=== PATIENT | male | born 1960 | race Caucasian/White ===

== ENCOUNTER → 2016-07-03 | Outpatient (CLI) | payer OTHER ==
[2016-07-03 12:20] LABS: EKG EKG PERFORMED
[2016-07-03 13:13] LABS: Basophils # (A) 0.1 k/uL (0-0.2); Basophils % (A) 1 %; CH 33.8; CHCM 35.2; Eosinophils # (A) 0.2 k/uL (0-0.7); Eosinophils % (A) 3 %; HCT 51.2 % (39.0-53.0); HDW 2.72; HGB 17.1 gm/dL (13.0-17.5); Luc # (Auto) 0.12; Luc % (Auto) 2; Lymphocytes # (A) 2.2 k/uL (1.0-4.8); Lymphocytes % (A) 32 %; MCH 32.2 pg (25.0-35.0); MCHC 33.4 g/dL (31.0-37.0); MCV 96.4 fL (80.0-100.0); Mean Platelet Volume 7.8; Monocytes # (A) 0.4 k/uL (0-1.0); Monocytes % (A) 6 %; Neutrophils # (A) 3.8 k/uL (1.3-7.7); Neutrophils % (A) 56 %; RBC 5.31 m/uL (4.30-5.90); WBC 6.8 k/uL (3.8-10.6); WBC (Perox) 6.78
[2016-07-03 13:29] LABS: ALT 39 U/L (21-72); AST 22 U/L (17-59); Alkaline Phosphatase 59 U/L (38-126); Anion Gap 13 mmol/L; Blood Urea Nitrogen 21 mg/dL (9-20); Carbon Dioxide 27 mmol/L (22-30); Chloride 107 mmol/L (98-107); Glucose 95 mg/dL (74-99); Non-African American GFR(MDRD) >60 (>60 ml/min/1.73 sqM); Potassium 4.7 mmol/L (3.5-5.1); Sodium 147 mmol/L (137-145); Total Bilirubin 0.5 mg/dL (0.2-1.3); Total Protein 8.2 g/dL (6.3-8.2)
[2016-07-03 13:32] LABS: Appearance,Urine Clear (Clear); Bilirubin,Urine Negative (Negative); Glucose,Urine (UA) Negative (Negative); Ketones,Urine Negative (Negative); Leukocyte Esterase,Urine Negative (Negative); Nitrite,Urine Negative (Negative); Protein,Urine Negative (Negative); Specific Gravity,Urine 1.019 (1.001-1.035); UA Billing (MACRO vs. MICRO) CHEM; Urobilinogen,Urine <2.0 mg/dL (<2.0)
[2016-07-03 13:34] LABS: Partial Thromboplastin Time 22.6 sec (22.0-30.0); Prothrombin Time 10.3 sec (9.0-12.0)
== END | disposition home or self-care (01) ==
LOC: LABPAT 12:10
PROVIDERS: ATTEND Orthopaedic Surgery
DX: Z01.810 Encounter for preprocedural cardiovascular examination (principal); Z01.812 Encounter for preprocedural laboratory examination
CPT/HCPCS: 80053; 81003; 85025; 85610; 85730; 87070; 93005

== ENCOUNTER 2016-07-17 06:00 | Inpatient (IN) | payer OTHER ==
[~2016-07-17 06:00] MED LIST: ACETAMINOPHEN TAB 500 MG TAB PO ONE; DEXAMETHASONE SOD PHOSPHATE 10 MG/ML 1 ML VIAL IV ONE; HYDROmorphone 1 MG/ML 1 ML SYRINGE IVP PRN; MELOXICAM 7.5 MG TAB PO ONE; ONDANSETRON 4 MG/2 ML VIAL IVP ONE; TRANEXAMIC ACID 1,000 MG in SODIUM CHLORIDE 0.9% 100 ML IVPB ONE; ceFAZolin 2 GM in SODIUM CHLORIDE 0.9% 100 ML IVPB ONE
[2016-07-17] MEDS: LACTATED RINGERS 1,000 ML IV SCH ×2 (06:51→21:48)
[2016-07-17] MEDS ORDERED: LIDOCAINE 1% 20 ML VIAL (10MG/ML) FOR IV START INTRADERMA ONE (06:51)
[2016-07-17] MEDS: MIDAZOLAM 2 MG/2 ML VIAL IV PRN ×2 (07:17→07:22)
[2016-07-17] MEDS ORDERED: hydrALAZINE HCL 20 MG/ML 1 ML VIAL ONE (07:50)
[2016-07-17] MEDS ORDERED: ESMOLOL 100 MG/10 ML VIAL ONE (07:50)
[2016-07-17] MEDS ORDERED: SODIUM CHLORIDE 0.9% 100 ML BAG ONE (07:50)
[2016-07-17] MEDS ORDERED: TRANEXAMIC ACID 1,000 MG/10 ML VIAL ONE (07:50)
[2016-07-17] MEDS ORDERED: MIDAZOLAM 2 MG/2 ML VIAL ONE (07:50)
[2016-07-17] MEDS ORDERED: PROPOFOL 10 MG/ML 20 ML VIAL IV ONE (07:50)
[2016-07-17] MEDS ORDERED: ceFAZolin 3,000 MG in SODIUM CHLORIDE 0.9% IRRIGATIO 3,000 ML IRRIGATION ONE (07:50)
[2016-07-17] MEDS: ROPIVACAINE 246.25 MG, EPINEPHrine 0.5 MG, KETOROLAC 30 MG, cloNIDine HCL/PF 80 MCG, WA... MISCELLANE ONE ×10 (08:16→09:11)
[2016-07-17] MEDS ORDERED: ROPIVACAINE 1,100 MG, SODIUM CHLORIDE 0.9% 330 ML MISCELLANE PRN ×2 (09:11)
--- NOTE | 2016-07-17 09:13 | P.ONQ ---
Anesthesiology Proc Note - PNB - Peripheral Nerve Block Performed Right Adductor Canal Indication: Acute Post-Operative Pain, Requested by physician (Marbin Ashton) Sedation Type: Sedate with meaningful contact maintained Preparation: Sterile Dressing Position: Supine Catheter: Indwelling Needle Types: On-Q Needle Size: 100mm (4") Needle Gauge: 20 Technique: Ultrasound Injectate: 0.5% Ropivacaine (see comment for volume) (20cc) Blood Aspirated: No Pain Paresthesia on Injection Noted: No Resistance on Injection: Normal Events: Uneventful and Well Tolerated
--- NOTE | 2016-07-17 09:40 | P.OP ---
Date of Procedure: 07/17/16 Preoperative Diagnosis: Severe osteoarthritis right knee Postoperative Diagnosis: Severe osteoarthritis right knee Procedure(s) Performed: Right total knee arthroplasty Implants: Blackwell [employer] Nephew Oxinium femoral component size 7, right Blackwell [employer]hew Anjelica II right nonporous tibial baseplate size 8 [employer]well [employer]hew size 9mm Legion XLPE dished articular insert, size 7-8 [employer] Anjelica II resurfacing patellar component, 35 mm All components were cemented using Timmy bone cement.. The articulation is ceramic on polyethylene. Anesthesia: spinal Surgeon: Marbin Ashton Telegraphic Typewriter Operator Chief #1: Katie Parrish Estimated Blood Loss (ml): 50 Pathology: other (Bone and cartilage) Condition: stable Disposition: PACU Indications for Procedure: After failure of conservative treatment we discussed the surgical and nonsurgical treatment options at length. Patient wishes to proceed with a total knee arthroplasty. Complications specific to this procedure were discussed at length, including but not limited to infection, bleeding, stiffness , and nerve injury. Patient is aware of all these complications and informed consent was obtained Operative Findings: Preoperative findings are consistent with severe osteoarthritis of the right knee Description of Procedure: Patient was seen in the preoperative area consent was reviewed and operative site was marked with a skin marker. An adductor canal pain catheter was placed by anesthesia in the preoperative area. Patient was then brought to the operating room and given preoperative antibiotics intravenously. A spinal anesthetic was administered by the anesthesia department. A tourniquet was placed on the upper thigh and the lower extremity was prepped and draped in usual sterile fashion. A gram of transexamic acid was given. A universal timeout was then performed which confirmed the patient's name, surgical site, ALLERGIES, and consent. The lower extremity was then exsanguinated and tourniquet was inflated to 250 mmHg. A standard and anterior midline approach to the knee was performed. The skin and subcutaneous tissue was dissected down to the patellar tendon. A medial parapatellar arthrotomy was then performed. The knee was then extended, the patellar was everted, and the knee was again flexed. Anterior horns of both menisci were excised, and a release was performed to the posterior medial aspect of the knee. On gross visual inspection, there was complete loss of articular cartilage in the medial and patellofemoral joint spaces. There was also significant cartilage damage in the lateral compartment. There were multiple periarticular osteophytes which were then removed with a Ronguer. The femoral canal was then opened with the appropriate drill, and the intramedullary femoral cutting guide was then placed and set for 4 of valgus. The distal femoral cutting block was then pinned in place, and the distal femur was then cut. The cutting block was then removed and the cut was checked for flatness. Next, the sizing guide was then placed and set for 3 external rotation based off of the epicondylar axis and Whitesides line. After the femur was sized, the appropriate 4-in-1 cutting block was then pinned in place. The anterior condyles were cut without notching. The posterior and chamfer cuts were performed while protecting the collateral ligaments. The cutting block was then removed, and the femoral canal was plugged with autologous bone. Attention was then directed to the tibia. The remaining ACL was removed with a Ronguer, and the tibia was then gently subluxed forward with a large bent knee retractor. Any remaining menisci was excised. The posterior lateral corner was cauterized in order to cauterize the lateral geniculate artery. The extra medullary tibial cutting guide was then placed, set for the appropriate rotation , slope, and depth of resection. The proximal tibia cutting guide was then pinned in place. Proximal tibia was then cut and sized. Next trials were then placed with the appropriate-sized insert. The knee was able to fully extend and flex to 130 and was stable throughout all range of motion. The knee was then extended, patella everted. Patella was then measured, and then using an osteotomy guide, the patella was cut at the appropriate level. The patella was then measured and drilled and the patella trial was then placed. The knee was then taken through range of motion with the patella trial and the patella tracked normally. The knee was then extended patella trial was then removed and the patella was everted. Knee was then flexed and lug holes were drilled through the femoral trial and the femoral trial was then removed. The tibial was then exposed, and the tibial broach guide was then pinned in place after it was set for the appropriate rotation to allow for the most coverage without overhang. The tibia was then reamed and broached. The cut surfaces of bone were then irrigated with pulsatile lavage. The posterior structures were injected with the ropivacaine solution. The knee was also irrigated with Irrisept solution. The components were then opened, the cement was mixed, and the components were then cemented in place. The cement was allowed to harden with the knee in full extension. While the cement was hardening, the remaining soft tissues were injected with the ropivacaine solution. After the cemented hardened. The tourniquet was released, and hemostasis was obtained. A second gram of transexamic acid was given. The knee was again irrigated. The knee was again taken through range of motion and found to be stable throughout all range of motion of 0-130, and the patella tracked normally. The fascia was then closed with #2 strata fix suture. The subcutaneous tissue was closed with 3-0 Vicryl and 3-0 strata fix. Dermabond tape was used for the skin and placed with the knee in flexion. The patient was placed in a sterile dressing. Patient was then transferred to recovery room in stable condition. The accounting manager assistant controller ANITA Farias was required due the complexity surgery and the need for a skilled surgical technician. She assisted in positioning, draping , retraction, and closure of the wound.
[2016-07-17] MEDS ORDERED: HYDROmorphone 1 MG/ML 1 ML SYRINGE IVP PRN ×2 (09:51)
[2016-07-17] MEDS ORDERED: HYDROcodone/APAP 5-325MG 1 EACH TAB PO PRN (09:51)
[2016-07-17] MEDS ORDERED: DIAZEPAM 5 MG TAB PO PRN ×2 (09:51)
[2016-07-17] MEDS ORDERED: NALOXONE 0.4 MG/ML 1 ML VIAL IV PRN (09:51)
[2016-07-17] MEDS ORDERED: ONDANSETRON 4 MG/2 ML VIAL IVP PRN (09:51)
[2016-07-17] MEDS ORDERED: BISACODYL 10 MG SUPP RECTAL PRN (09:51)
[2016-07-17] MEDS ORDERED: MAGNESIUM HYDROXIDE 2,400 MG/10 ML CUP PO PRN (09:51)
[2016-07-17 11:08] VITALS: BMI 29.5
--- NOTE | 2016-07-17 11:21 | XR ---
EXAMINATION TYPE: XR knee limited RT DATE OF EXAM: 07/17/2016 10:10 AM COMPARISON: NONE HISTORY: Post knee replacement TECHNIQUE: 2 views right knee FINDINGS: No acute fractures are evident. Tibial and femoral components are present. Postsurgical harman nges are within soft tissues. IMPRESSION: 1. No fractures post knee replacement
[2016-07-17] MEDS: HYDROcodone/APAP 5-325MG 1 EACH TAB PO PRN ×3 (12:28→23:30)
[2016-07-17] MEDS: SODIUM CHLORIDE 0.9% 1,000 ML IV SCH ×2 (12:28→20:36)
[2016-07-17] MEDS: ceFAZolin 2 GM in SODIUM CHLORIDE 0.9% 100 ML IVPB SCH ×2 (16:40→23:31)
[2016-07-17] MEDS: HYDROmorphone 1 MG/ML 1 ML SYRINGE IVP PRN ×2 (16:43→20:36)
[2016-07-17] MEDS: hydrOXYzine PAMOATE 25 MG CAP PO PRN ×2 (18:00→23:31)
[2016-07-17] MEDS: SENNOSIDES-DOCUSATE SODIUM 1 EACH TAB PO SCH (20:31)
[2016-07-17] MEDS: ASPIRIN 325 MG TAB PO SCH (20:36)
[2016-07-18] MEDS: HYDROmorphone 1 MG/ML 1 ML SYRINGE IVP PRN ×5 (01:11→19:27)
[2016-07-18] MEDS: SODIUM CHLORIDE 0.9% 1,000 ML IV SCH ×3 (04:13→20:19)
[2016-07-18] MEDS: HYDROcodone/APAP 5-325MG 1 EACH TAB PO PRN (06:34)
[2016-07-18] MEDS: hydrOXYzine PAMOATE 25 MG CAP PO PRN ×4 (06:34→22:30)
[2016-07-18 07:13] LABS: Basophils % (A) 0 %; CH 33.9; CHCM 34.9; Eosinophils # (A) 0.1 k/uL (0-0.7); Eosinophils % (A) 1 %; HCT 36.1 % (39.0-53.0); Luc # (Auto) 0.21; Luc % (Auto) 2; Lymphocytes # (A) 2.5 k/uL (1.0-4.8); Lymphocytes % (A) 24 %; MCHC 34.9 g/dL (31.0-37.0); MCV 97.4 fL (80.0-100.0); Mean Platelet Volume 7.8; Monocytes # (A) 0.6 k/uL (0-1.0); Monocytes % (A) 6 %; Neutrophils # (A) 6.9 k/uL (1.3-7.7); Neutrophils % (A) 66 %; RDW 13.2 % (11.5-15.5); WBC 10.4 k/uL (3.8-10.6); WBC (Perox) 10.77
[2016-07-18 07:17] LABS: HGB 12.6 gm/dL (13.0-17.5)
[2016-07-18] MEDS: ASPIRIN 325 MG TAB PO SCH ×2 (09:09→19:18)
[2016-07-18] MEDS: MELOXICAM 7.5 MG TAB PO SCH (09:09)
--- NOTE | 2016-07-18 10:32 | P.PN ---
Progress Note - Text 0710 anesthesia POD 1. Patient is status post right total knee replacement under spinal anesthesia with a right sided adductor canal catheter placed for postoperative pain relief. VAS is 3, 5 with an equal amount of discomfort both posteriorly and anteriorly. Catheter dressing is intact and the catheter site is clean and dry.
--- NOTE | 2016-07-18 11:39 | CONS ---
DATE OF CONSULTATION: 07/18/2016 REASON FOR CONSULTATION: Medical management requested by Dr. Ashton. CONSULTATION: This is a 56-year-old patient of Dr. Lindsay Smith, whose chronic conditions include osteoarthritis and muscle spasms. Patient has undergone a right total knee arthroplasty. Postprocedure patient is lying in bed rather somnolent, slight nausea. Pain is controlled. Denies any cardiac history. Patient is a smoker. REVIEW OF SYSTEMS: CONSTITUTIONAL: None. HEENT: None. RESPIRATORY: Occasional cough. CARDIOVASCULAR: None. GASTROINTESTINAL: None. GENITOURINARY: None. MUSCULOSKELETAL: Pain in the joints. DERMATOLOGICAL: None. HEMATOLOGICAL: None. LYMPHATIC: None. PSYCHIATRY: None. NEUROLOGICAL: None. Past medical history of osteoarthritis, muscle spasms. PAST SURGICAL HISTORY: None. SOCIAL HISTORY: Socially does not drink alcohol, is a smoker. FAMILY HISTORY: Reviewed; noncontributory to presentation. HOME MEDICATIONS: Soma 350 mg p.o. q.i.d. ALLERGIES: None. On examination, temperature 97.1, pulse 75, respirations 16, blood pressure 134/61, pulse ox 92% on room air. GENERAL APPEARANCE: Well built, lying in bed, lethargic, somnolent. EYES: Pupils equal. Conjunctivae normal. HEENT: Oral cavity normal. NECK: JVD not raised. Mass not palpable. Respiratory effort normal. LUNGS: Diminished breath sounds. CARDIOVASCULAR: First and second sounds normal. No edema. ABDOMEN: Soft, nontender. Liver and spleen not palpable. LYMPHATIC: No lymph nodes palpable in neck or axillae. PSYCHIATRY: Lethargic. Able to answer questions but dozes off. NEUROLOGICAL: Pupils equal. Cranial nerves grossly intact. INVESTIGATIONS: White count 10.4, hemoglobin 12.6, platelets 130. ASSESSMENT: 1. Right total knee arthroplasty, probably from osteoarthritis. 2. Thrombocytopenia, likely ITP. 3. Chronic nicotine dependence. Patient is a smoker. 4. Muscle spasms. PLAN: Patient has got aspirin for DVT prophylaxis, pain control is in place. Care was discussed with the patient, advised against smoking. Will give him a nicotine patch. Patient should follow up with his family doctor upon discharge. Thank you, Dr. Ashton.
[2016-07-18] MEDS ORDERED: HYDROcodone/APAP 7.5-325MG 1 EACH TAB PO PRN ×2 (11:53)
[2016-07-18] MEDS: NICOTINE 14MG/24HR PATCH TRANSDERM SCH (12:27)
--- NOTE | 2016-07-18 12:27 | P.DS ---
Providers Date of admission: 07/17/16 06:00 Expected date of discharge: 07/18/16 Attending physician: Marbin Ashton Consults: 07/17/16 09:51 Consult Physician Routine Consulting Provider: Juan Antonio Read Consult Reason/Comments: medical management Do you want consulting provider notified?: Yes Primary care physician: Lindsay Smith - Discharge Diagnosis(es) (1) Primary osteoarthritis of right knee Current Visit: Yes Status: Acute (2) Status post right knee replacement Current Visit: Yes Status: Acute Hospital Course: This is a pleasant 56-year-old gentleman last seen in our office with complaints of right knee pain. Patient has known history of degenerative arthritis of the right knee and presented to discuss options. After discussion and consideration, patient elected to proceed with a total knee arthroplasty of the right knee. The patient was seen preoperatively and medically cleared for surgery by his primary care physician. The patient was admitted to [facility] and underwent right total knee arthroplasty with Dr. Marbin Ashton. The procedure was performed without complications or sequelae. The patient has done well postoperatively. The patient was seen and evaluated at bedside today and denies any new complaints. Pain is reasonably controlled. Dressing is clean dry and intact. Incision looks fine with no erythema or active drainage. Calf is soft and nontender. The patient has full foot and ankle motion without difficulty. Patient's right lower extremity is neurovascular intact. Patient is orthopedically stable for discharge to home today. Pertinent Studies: Laboratory Tests 07/18/16 06:32 WBC 10.4 RBC 3.70 L Hgb 12.6 L D Hct 36.1 L MCV 97.4 MCH 34.0 MCHC 34.9 RDW 13.2 Plt Count 130 L Patient Condition at Discharge: Good Plan - Discharge Summary New Discharge Prescriptions: Aspirin 325 mg PO BID #60 tab HYDROcodone/APAP 7.5-325MG [[place] 7.5] 1 - 2 each PO Q6HR PRN #90 tab PRN Reason: Pain Sennosides-Docusate Sodium [Senokot-S] 2 tab PO DAILY #60 tablet Discharge Medication List Aspirin 325 mg PO BID #60 tab 07/18/16 [Rx] HYDROcodone/APAP 7.5-325MG [[place] 7.5] 1 - 2 each PO Q6HR PRN #90 tab 07/18/16 [ Rx] Sennosides-Docusate Sodium [Senokot-S] 2 tab PO DAILY #60 tablet 07/18/16 [Rx] Follow up Appointment(s)/Referral(s): [facility], [NON-STAFF] - 1 Week Marbin Ashton DO [Doctor of Osteopathic Medicine] - 2 Weeks Ambulatory/Diagnostic Orders: Continuous Passive Motion (CPM) Machine [DME.AMB1] Location: Determined By Patient Activity/Diet/Wound Care/Special Instructions: call [facility] when you get home to have your CPM delivered. Weightbearing as tolerated with a walker CPM daily Daily dressing changes, keep incision clean and dry [facility] with questions or concerns [phone] Discharge Disposition: HOME WITH HOME HEALTH SERVICES
[2016-07-18] MEDS ORDERED: HYDROcodone/APAP 10-325MG 1 EACH TAB PO PRN (15:07)
[2016-07-18] MEDS ORDERED: KETOROLAC 30 MG/ML 1 ML VIAL IVP STA (15:08)
[2016-07-18] MEDS: HYDROcodone/APAP 10-325MG 1 EACH TAB PO PRN ×2 (17:49→22:30)
[2016-07-18] MEDS: SENNOSIDES-DOCUSATE SODIUM 1 EACH TAB PO SCH (19:18)
[2016-07-18] MEDS: LACTATED RINGERS 1,000 ML IV SCH (20:19)
[2016-07-19 00:41] VITALS: RESP 16
[2016-07-19] MEDS: hydrOXYzine PAMOATE 25 MG CAP PO PRN ×2 (04:03→09:12)
[2016-07-19] MEDS: HYDROcodone/APAP 10-325MG 1 EACH TAB PO PRN ×2 (04:03→09:12)
[2016-07-19] MEDS: ASPIRIN 325 MG TAB PO SCH (08:02)
[2016-07-19] MEDS: MELOXICAM 7.5 MG TAB PO SCH (08:02)
--- NOTE | 2016-07-19 08:02 | P.PN ---
Subjective Principal diagnosis: Status post right total knee arthroplasty This is a pleasant 56-year-old gentleman who is status post right total knee arthroplasty. Today's postoperative day #2. The patient was planning to be discharged home yesterday afternoon. He apparently had some difficulty with pain control afternoon and decided to hold his discharge. He was seen and evaluated at bedside this morning with Dr. Marbin Ashton. He is feeling much better and wishes to be discharged today. He has no new complaints at this time. Objective - Vital Signs Vital signs: Vital Signs Temp 98.0 F 07/19/16 00:40 Pulse 73 07/19/16 00:40 Resp 16 07/19/16 00:40 BP 156/85 07/19/16 00:40 Pulse Ox 94 L 07/19/16 00:40 Intake & Output 07/18/16 07/19/16 07/19/16 18:59 06:59 18:59 Intake Total 1939 Balance 1939 Intake: Oral 1939 Other: Voiding Method Urinal # Voids 1 1 - Exam The patient does not appear in acute distress. Alert and orientated 3. Dressing is clean dry and intact. Incision appears fine with no erythema or active drainage. Calf is soft and nontender. Good foot and ankle motion without difficulty. Sensation and circulatory status is intact. - Labs CBC & Chem 7: 07/18/16 06:32 Assessment and Plan (1) Primary osteoarthritis of right knee Status: Acute (2) Status post right knee replacement Status: Acute Plan: 1. Continue with routine postoperative care. 2. Anticoagulation with aspirin. 3. Physical therapy and CPM today. 4. Appreciate input from medicine. 5. Anticipate discharge to home with home care today.
[2016-07-19] MEDS: NICOTINE 14MG/24HR PATCH TRANSDERM SCH (08:03)
[2016-07-19 08:19] VITALS: BP 122/63; PULSE 85; TEMP 98.1
--- NOTE | 2016-07-20 07:19 | PN ---
DATE OF SERVICE: 07/19/2016 PRESENTING COMPLAINT: Right total knee arthroplasty. INTERVAL HISTORY: This patient was seen by me this morning, doing much better. Did tolerate his diet. Has been out of bed. Did work with physical therapy. Review of systems done for constitutional, cardiovascular, GI, pulmonary; relevant findings as above. Current medications are reviewed. On examination, temperature 98.1, pulse 85, respiration 16, blood pressure 122/63, pulse ox 97% on room air. GENERAL APPEARANCE: Sitting up, comfortable. EYES: Pupils equal. Conjunctivae normal. NECK: JVD not raised. Mass not palpable. RESPIRATORY: Effort normal. LUNGS: Diminished breath sounds. CARDIOVASCULAR: First and second sounds normal. No edema. ABDOMEN: Soft, nontender. Liver and spleen not palpable. PSYCHIATRY: Alert and oriented x3. Mood and affect is normal. INVESTIGATIONS: Hemoglobin 12.6, platelets 130. ASSESSMENT: 1. Right total knee arthroplasty, probably from osteoarthritis. 2. Thrombocytopenia, likely ITP. 3. Chronic nicotine dependence. Patient is a smoker. 4. Muscle spasms, better. PLAN: Care was discussed with the patient. Continue current medication and treatment plan. Thank you, Dr. Ashton.
== END 2016-07-19 10:53 | disposition home health service (06) | DRG 470 ==
LOC: 2ORMAIN 06:00 → 3SUR 09:58
PROVIDERS: ADMIT Orthopaedic Surgery; ATTEND Orthopaedic Surgery
PROC: 0SRC0J9 Replacement of Right Knee Joint with Synthetic Substitute, Cemented, Open Approach (ICD-10-PCS; principal; 2016-07-17 07:30)
DX: M17.11 Unilateral primary osteoarthritis, right knee (principal); D69.3 Immune thrombocytopenic purpura; F17.200 Nicotine dependence, unspecified, uncomplicated; M62.838 Other muscle spasm; F32.9 Major depressive disorder, single episode, unspecified; F41.9 Anxiety disorder, unspecified; K00.0 Anodontia; M54.2 Cervicalgia; M54.9 Dorsalgia, unspecified; Z79.899 Other long term (current) drug therapy
CPT/HCPCS: 85025; 88300